=== PATIENT | female | born 1975 | race Two or more races ===

== ENCOUNTER 2024-09-06 15:02 | Emergency (ER) | payer OTHER ==
[~2024-09-06] VITALS: Ht 177.8 cm; Wt 86.6 kg
[2024-09-06] MEDS ORDERED: SYNTHROID112 MCG PO (15:26)
[2024-09-06] MEDS ORDERED: VALPROATE500 MG/5 M IV (15:27)
[2024-09-06] MEDS ORDERED: BUTALB/ACETAMINOPHEN/CAFFEINE 1 TAB TABLET PO ONE (17:45)
[2024-09-06] MEDS ORDERED: 0.9 % SODIUM CHLORIDE 1,000 ML IV SCH (17:45)
[2024-09-06] MEDS ORDERED: ONDANSETRON 4 MG TAB.RAPDIS PO ONE (17:45)
[2024-09-06] MEDS ORDERED: KETOROLAC TROMETHAMINE 60 MG VIAL IM ONE (17:45)
[2024-09-06 18:27] LABS: HEMATOCRIT 40.6 % (36.0-45.00); HEMOGLOBIN 13.6 g/dL (12.0-15.00); MEAN CELL VOLUME 90.2 fL (80.00-100.00); MEAN CORPUSCULAR HEMOGLOBIN 30.2 pg (27.00-32.0); MEAN CORPUSCULAR HGB CONC 33.4 g/dl (32.0-36.0); PLATELET COUNT 292 K/uL (150-450); RED CELL DISTRIBUTION WIDTH 13.1 % (11.5-14.5)
[2024-09-06 18:59] LABS: ALBUMIN 3.9 gm/dL (3.4-5.0); BILIRUBIN TOTAL 1.21 mg/dL (0.3-1.2); CALCIUM 9.4 mg/dL (8.5-10.1); CREATININE SERUM 0.76 mg/dL (0.55-1.02); GFR 80.55; GLOBULINA 4.2 G/DL (2.4-3.5); POTASSIUM 3.53 mEq/L (3.5-5.1); TOTAL PROTEIN 8.1 gm/dL (6.4-8.2)
== END 2024-09-06 22:01 | disposition home or self-care (01) ==
LOC: ER 15:04
PROVIDERS: Emergency Medicine
DX: R51.9 Headache, unspecified (principal); K29.70 Gastritis, unspecified, without bleeding; F98.8 Other specified behavioral and emotional disorders with onset usually occurring in childhood and adolescence